=== PATIENT | male | born 1965 | race Caucasian/White ===

== ENCOUNTER → 2024-04-30 | Outpatient (CLI) | payer MEDICAID ==
[~2024-04-30] MED LIST: BUTA-245 PO; ESOM20CA33 PO; GLIM4TAB PO; HYDR-4383 PO; LACT1CAP26 PO; LISI20TA28 PO; MAGN296S89 PO; METF-438 PO; MULT-1141 PO; NICO-687 TD; PROP20TA6 PO
== END | disposition home or self-care (01) ==
LOC: MRI 11:44
PROVIDERS: ATTEND Family Medicine
DX: M47.814 Spondylosis without myelopathy or radiculopathy, thoracic region (principal); M51.34 Other intervertebral disc degeneration, thoracic region; M51.24 Other intervertebral disc displacement, thoracic region; M48.04 Spinal stenosis, thoracic region; Z86.19 Personal history of other infectious and parasitic diseases
CPT/HCPCS: 72146

== ENCOUNTER → 2024-05-03 | Outpatient (CLI) | payer MEDICAID | END | disposition home or self-care (01) | LOC: RAD 13:48 | PROVIDERS: ATTEND Family Medicine | DX: Z12.2 Encounter for screening for malignant neoplasm of respiratory organs (principal); K74.60 Unspecified cirrhosis of liver; N62 Hypertrophy of breast; K76.6 Portal hypertension; M51.34 Other intervertebral disc degeneration, thoracic region; M48.04 Spinal stenosis, thoracic region; M25.78 Osteophyte, vertebrae; Z86.19 Personal history of other infectious and parasitic diseases; Z87.891 Personal history of nicotine dependence | CPT/HCPCS: 71271; 76705 ==